=== PATIENT | male | born 1990 | race African-American/Black ===

== ENCOUNTER 2024-09-20 05:06 | Emergency (ER) | payer MEDICAID, OTHER ==
[~2024-09-20] VITALS: Ht 172.7 cm; Wt 82.0 kg
[2024-09-20 05:08] VITALS: TEMP 36.8; O2SAT 99
[2024-09-20 07:33] LABS: BASOPHILS % 0.5 % (0.0-2.0); EOSINOPHILS % 0.3 % (0.0-5.0); HEMATOCRIT. 39.1 % (42.0-52.0); HEMOGLOBIN. 13.3 g/dL (14.0-18.0); LYMPHOCYTES % 16.0 % (20.0-50.0); MEAN PLATELET VOLUME 6.9 fl (7.4-10.4); MONOCYTES % 9.8 % (2.0-8.0); NEUTROPHILS % 73.4 % (40.0-76.0); PLATELET 354 x1000/uL (130-400); RED BLOOD CELL COUNT 4.76 mill/uL (4.7-6.1); RED CELL DISTRIBUTION WIDTH 14.4 % (11.6-14.6)
[2024-09-20 07:40] VITALS: TEMP 98.2
[2024-09-20 07:50] LABS: CREATININE 0.9 mg/dL (0.6-1.3); UREA NITROGEN BLOOD 8 mg/dL (9-23)
[2024-09-20 07:52] LABS: TROPONIN I HIGH SENSITIVITY 5 ng/L (3.0-53)
[2024-09-20 09:00] VITALS: BP 156/86; PULSE 99; RESP 18; O2SAT 99
[2024-09-20 09:59] LABS: TROPONIN I HIGH SENSITIVITY 6 ng/L (3.0-53)
[2024-09-20] MEDS ORDERED: IPRATROPIUM/ALBUTEROL 0.5-3(2.5)MG/3ML NEB HHN PRN (10:15)
[2024-09-20] MEDS ORDERED: CLONIDINE 0.1MG TABLET PO PRN (10:15)
[2024-09-20] MEDS ORDERED: DOCUSATE SODIUM 100MG CAPSULE PO PRN (10:15)
[2024-09-20] MEDS ORDERED: ACETAMINOPHEN 325MG TABLET PO PRN ×2 (10:15)
[2024-09-20] MEDS ORDERED: ONDANSETRON HCL 4MG/2ML INJ IV PRN (10:15)
== END 2024-09-20 10:11 | disposition left against medical advice (07) ==
LOC: ER 05:06 → EDBEDREQ 05:44 → EDBEDREQTM 07:57 → EDBEDREQ 07:57 → CANBEDREQ 09:48 → ER 10:11
DX: R07.89 Other chest pain (principal); F14.90 Cocaine use, unspecified, uncomplicated; J45.909 Unspecified asthma, uncomplicated; R06.02 Shortness of breath
CPT/HCPCS: 80048; 83880; 85025; 84484; 36415; 71045; 93005; 99285; Z7610 ×2; A4606